=== PATIENT | male | born 2000 | race Two or more races ===

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

== ENCOUNTER 2018-04-08 22:52 | Emergency (ER) | payer OTHER ==
[2018-04-08] MEDS ORDERED: SODIUM CHLORIDE 1,000 ML IV STA (23:07)
[2018-04-08] MEDS ORDERED: ONDANSETRON 4 MG/2 ML VIAL IVPUSH ONE (23:07)
[2018-04-08] MEDS ORDERED: FAMOTIDINE 20 MG/50 ML IVPB 20 MG/50 ML MG IVPB ONE ×2 (23:07→23:32)
--- NOTE | 2018-04-08 23:09 | PDOC ---
Attending Attestation - Resident Resident Name: Colton Cantrell - ED Attending Attestation I have performed the following: I have examined & evaluated the patient, The case was reviewed & discussed with the resident, I agree w/resident's findings & plan - HPI HPI: 04/08/18 23:29 The patient is a 17 year old male, with a significant past medical history of diverticulosis, who presents to the emergency department with, 1 day of nausea, epigastric pain, and subjective chills. He describes his epigastric pain as a stabbing sensation with associated dry heaves. His last bowel movement was yesterday. He denies any recent headache or dizziness. He denies any recent vomit, diarrhea or constipation. He denies any recent chest pain or shortness of breath. He denies any recent dysuria, frequency, urgency or hematuria. Allergies: NKA - Physicial Exam PE: 04/09/18 00:30 GENERAL: Awake, alert, and fully oriented, in no acute distress HEAD: No signs of trauma EYES: PERRLA, EOMI, sclera anicteric, conjunctiva clear ENT: Auricles normal inspection, hearing grossly normal, nares patent, oropharynx clear without exudates. Moist mucosa NECK: Normal ROM, supple, no lymphadenopathy, JVD, or masses LUNGS: Breath sounds equal, clear to auscultation bilaterally. No wheezes, and no crackles HEART: Regular rate and rhythm, normal S1 and S2, no murmurs, rubs or gallops +ABDOMEN: Obese. Gassy bowel sounds. Minimal periumbilical tenderness. Soft, nontender. No guarding, no rebound. No masses EXTREMITIES: Normal range of motion, no edema. No clubbing or cyanosis. No cords, erythema, or tenderness NEUROLOGICAL: Cranial nerves II through XII grossly intact. Normal speech, normal gait SKIN: Warm, Dry, normal turgor, no rashes or lesions noted. <Rei Gomes - Last Filed: 04/09/18 00:30> - Medical Decision Making 04/09/18 00:40 Labs normal; exam normal; pt will be discharged and he can follow with GI as an outpatient. UA is normal and pt received IV hydration. <Ellen Appiah - Last Filed: 04/09/18 00:41> Attestations - Attestations 04/08/18 23:30 Documentation prepared by Rei Gomes, acting as medical payment poster for Ellen Appiah MD. <Rei Gomes - Last Filed: 04/09/18 00:30>
--- NOTE | 2018-04-08 23:16 | PDOC ---
History of Present Illness - General Stated Complaint: ABDOMINAL PAIN Time Seen by Provider: 04/08/18 23:01 History Source: Patient Exam Limitations: No Limitations - History of Present Illness Initial Comments: 04/08/18 23:12 Patient is a 17M with history of diverticulosis here today complaining of one day of epigastric abdominal pain and nausea. He describes the pain as stabbing pain in his epigastrium. Patient denies prior abdominal surgery. Denies fevers, vomiting. Denies dysuria. Last bowel movement today. Past History - Past Medical History Allergies/Adverse Reactions: Allergies Allergy/AdvReac Type Severity Reaction Status Date / Time No Known Allergies Allergy Verified 04/08/18 23:39 Home Medications: Ambulatory Orders Acetaminophen [Tylenol] 650 mg PO PRN 05/21/17 Ibuprofen 800 mg PO QID PRN #60 tab MDD 3 05/21/17 Loperamide HCl [Imodium A-D] 2 mg PO ASDIR #20 capsule MDD 4 10/22/17 Ondansetron [Zofran Odt -] 4 mg SL TID #8 od.tablet 10/22/17 Asthma: Yes COPD: No DVT: No Dementia: No - Immunization History Immunization Up to Date: Yes - Suicide/Smoking/Psychosocial Hx Smoking History: Never smoked Have you smoked in the past 12 months: No Hx Alcohol Use: No Drug/Substance Use Hx: No Substance Use Type: None Review of Systems - Review of Systems Comments:: 04/08/18 23:13 GENERAL/CONSTITUTIONAL: No fever or chills. No weakness. HEAD, EYES, EARS, NOSE AND THROAT: No change in vision. No sore throat. CARDIOVASCULAR: No chest pain or shortness of breath RESPIRATORY: No cough, wheezing, or hemoptysis. GASTROINTESTINAL: +nausea. No vomiting, diarrhea or constipation. GENITOURINARY: No dysuria, frequency, or change in urination. MUSCULOSKELETAL: No joint or muscle swelling or pain. No neck or back pain. SKIN: No rash NEUROLOGIC: No headache, vertigo, loss of consciousness, or change in strength/ sensation. ENDOCRINE: No increased thirst. No abnormal weight change HEMATOLOGIC/LYMPHATIC: No anemia, easy bleeding, or history of blood clots. ALLERGIC/IMMUNOLOGIC: No hives or skin allergy. *Physical Exam - Physical Exam Comments: 04/08/18 23:14 GENERAL: Awake, alert, and fully oriented, in no acute distress, sitting up without pain, moving without pain HEAD: No signs of trauma, normocephalic, atraumatic EYES: PERRLA, EOMI, sclera anicteric, conjunctiva clear ENT: Auricles normal inspection, hearing grossly normal, nares patent, oropharynx clear without exudates. Moist mucosa NECK: Normal ROM, supple, no lymphadenopathy, JVD, or masses LUNGS: No distress, speaks full sentences, clear to auscultation bilaterally HEART: Regular rate and rhythm, normal S1 and S2, no murmurs, rubs or gallops, peripheral pulses normal and equal bilaterally. ABDOMEN: Soft, +epigastric tenderness, normoactive bowel sounds. No guarding, no rebound. No masses EXTREMITIES: Normal inspection, Normal range of motion, no edema. No clubbing or cyanosis. NEUROLOGICAL: Cranial nerves II through XII grossly intact. Normal speech, normal gait, no focal sensorimotor deficits SKIN: Warm, Dry, normal turgor, no rashes or lesions noted. ED Treatment Course - LABORATORY CBC & Chemistry Diagram: 04/08/18 23:30 04/08/18 23:30 Medical Decision Making - Medical Decision Making 04/08/18 23:14 Patient is 17M with history of diverticulosis here today complaining of epigastric abdominal pain and nausea. Vital signs normal and stable. Believe patient most likely has gastritis, but will do basic labs to evaluate for pancreatitis and liver inflammation. Do not believe that patient has cholecystitis given patient's no RUQ pain. Do not believe that patient has diverticulitis or appendicitis due to lack of lower abdominal pain. Will treat with fluids, pepcid, zofran. 04/09/18 00:32 CBC CMP reassuring. 04/09/18 00:33 Patient reassessed, feeling better. Nontender abdomen on exam. Will discharge home. *DC/Admit/Observation/Transfer Diagnosis at time of Disposition: Gastritis - Discharge Dispostion Disposition: HOME Condition at time of disposition: Good Decision to Admit order: No - Referrals Referrals: Andrae Hawthorne MD [Staff Physician] - - Patient Instructions Printed Discharge Instructions: DI for Gastritis Additional Instructions: Please return if you have any new, worsening or concerning symptoms. Please follow up with your primary care doctor and GI specialist on Wednesday. - Post Discharge Activity Forms/Work/School Notes: Back to Work
[2018-04-08] MEDS ORDERED: ONDANSETRON 4 MG/2 ML VIAL ONE (23:31)
[2018-04-08 23:39] VITALS: BP 128/85; PULSE 60; TEMP 98.7; BMI 38.6
[2018-04-08 23:40] LABS: BASO % 0.7 % (0-2.0); EOS % 2.8 % (0-4.5); HEMATOCRIT 42.1 % (35.4-49); HEMOGLOBIN 14.5 GM/dL (11.7-16.9); LYMPH % 26.3 % (8-40); MCHC 34.4 g/dl (32.0-35.9); MEAN CELL VOLUME 90.3 fl (80-96); MONO % 11.6 % (3.8-10.2); NEUT % 58.6 % (42.8-82.8); PLATELET COUNT 232 K/MM3 (134-434); RBC 4.67 M/mm3 (4.00-5.60); RDW 13.4 % (11.9-15.9); WHITE BLOOD COUNT 10.6 K/mm3 (4.0-10.0)
[2018-04-09 00:05] LABS: ALBUMIN 3.7 g/dl (3.4-5.0); ALK PHOS 98 U/L (45-117); ANION GAP 6 MMOL/L (8-16); BILIRUBIN,TOTAL 0.2 mg/dL (0.2-1.0); BLOOD UREA NITROGEN 12 mg/dL (7-18); CALCIUM 8.8 mg/dL (8.5-10.1); CHLORIDE 105 mmol/L (98-107); CO2 29 mmol/L (21-32); GLUCOSE,RANDOM 99 mg/dL (74-106); LIPASE 102 U/L (73-393); SGPT/ALT 41 U/L (12-78); SODIUM 140 mmol/L (136-145); TOT PROT 7.8 g/dl (6.4-8.2)
[2018-04-09 00:08] LABS: POTASSIUM 4.4 mmol/L (3.5-5.1); SGOT/AST 27 U/L (15-37)
[2018-04-09 00:30] LABS: URINE APPEARANCE CLEAR; URINE BILIRUBIN NEGATIVE (<2.0 mg/dL); URINE COLOR LTYELLOW; URINE GLUCOSE (UA) NEGATIVE (NEGATIVE); URINE KETONE NEGATIVE (NEGATIVE); URINE LEUK ESTERASE NEGATIVE (NEGATIVE); URINE NITRITE NEGATIVE (NEGATIVE); URINE PROTEIN NEGATIVE (NEGATIVE); URINE UROBILINOGEN NEGATIVE mg/dL (0.2-1.0)
== END 2018-04-09 00:54 | disposition home or self-care (01) ==
LOC: JER 22:52
PROC: 3E033GC Introduction of Other Therapeutic Substance into Peripheral Vein, Percutaneous Approach (ICD-10-PCS; principal; 2018-04-08)
PROC: 3E033GC Introduction of Other Therapeutic Substance into Peripheral Vein, Percutaneous Approach (ICD-10-PCS; 2018-04-08)
DX: K29.00 Acute gastritis without bleeding (principal); Z87.19 Personal history of other diseases of the digestive system
CPT/HCPCS: 36415; 80053; 81003; 83690; 85025; 96365; 96375; 99281-25; J7030

== ENCOUNTER 2018-05-30 17:17 | Emergency (ER) | payer OTHER ==
[2018-05-30 17:29] VITALS: BP 152/88; PULSE 84; TEMP 98.8; BMI 38.6
--- NOTE | 2018-05-30 17:29 | PDOC ---
Rapid Medical Evaluation Time Seen by Provider: 05/30/18 17:23 Medical Evaluation: Allergies Allergy/AdvReac Type Severity Reaction Status Date / Time No Known Allergies Allergy Verified 04/08/18 23:39 05/30/18 17:26 I have performed a brief in person evaluation of this patient. The patient presents with a chief complaint of: "muscle vibrations" Pt states that he feels like my "spine is vibrating." I also had random UE and LE movements x 1 day. Pertinent PE: Skin: Clear Lungs: Clear Heart: RRR MS: Moves all extremities without difficulty. Neuro: Alert and oriented. 5/5 strength in UE and LE groups. No protonator drift. Psych: Appropriate affect The patient will proceed to: pt will go to [facility] for further evaluation. Discharge Disposition - Diagnosis Muscle spasm - Referrals - Patient Instructions - Post Discharge Activity
--- NOTE | 2018-05-30 18:17 | PDOC ---
History of Present Illness - General Chief Complaint: Injury Stated Complaint: FALL Time Seen by Provider: 05/30/18 17:23 History Source: Patient Exam Limitations: No Limitations Past History - Past Medical History Allergies/Adverse Reactions: Allergies Allergy/AdvReac Type Severity Reaction Status Date / Time No Known Allergies Allergy Verified 05/30/18 17:25 Home Medications: Ambulatory Orders NK [No Known Home Medication] 05/30/18 Asthma: Yes COPD: No DVT: No Dementia: No - Immunization History Immunization Up to Date: Yes - Suicide/Smoking/Psychosocial Hx Smoking History: Never smoked Have you smoked in the past 12 months: No Information on smoking cessation initiated: No Hx Alcohol Use: No Drug/Substance Use Hx: No Substance Use Type: None Trauma Specific PMHX - Complaint Specific PMHX Back Injury: Yes Neck Injury: No *Physical Exam - Vital Signs Last Vital Signs Temp Pulse Resp BP Pulse Ox 98.8 F 84 18 152/88 100 05/30/18 17:26 05/30/18 17:26 05/30/18 17:26 05/30/18 17:26 05/30/18 17:26 *DC/Admit/Observation/Transfer Diagnosis at time of Disposition: Muscle spasm - Discharge Dispostion Disposition: HOME Condition at time of disposition: Stable - Referrals Referrals: Juvenal Alonso MD [Staff Physician] - - Patient Instructions Additional Instructions: Your CAT scan as well as her examination today was normal. Given the history of symptoms please follow up with neurology in 1-2 days for further evaluation and treatment options. Return to the emergency room should symptoms worsen. - Post Discharge Activity
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
== END 2018-05-30 19:33 | disposition home or self-care (01) ==
LOC: JERFT 17:17
DX: M62.838 Other muscle spasm (principal); R25.8 Other abnormal involuntary movements; Z91.81 History of falling; Z87.09 Personal history of other diseases of the respiratory system
CPT/HCPCS: 70450-TC; 99281-25

== ENCOUNTER 2018-06-22 23:45 | Emergency (ER) | payer OTHER ==
[2018-06-23 01:08] VITALS: BP 139/74; PULSE 78; TEMP 98.6; BMI 36.9
--- NOTE | 2018-06-23 01:55 | PDOC ---
History of Present Illness - General Chief Complaint: Pain Stated Complaint: LT FOOT PAIN Time Seen by Provider: 06/23/18 01:55 History Source: Patient - History of Present Illness Initial Comments: 06/23/18 02:10 The patient is a 18 year old male with a PMH of Asthma (multiple childhood hospitalizations, no intubations) presents to our ED c/o acute onset of L foot pain. States he noticed the pain when he woke up this morning and it is "aching " localized to right his R metatarsal, 5/10 and worse with ambulation. No h/o trauma. Motrin @ home has provided little to no relief. The patient denies chest pain, abdominal pain, shortness of breath, nausea/ vomiting, diarrhea/constipation. NKDA Surgical: L hip replacement Social: denies toxic habits PMD: None - will refer to IM resident clinic Past History - Past Medical History Allergies/Adverse Reactions: Allergies Allergy/AdvReac Type Severity Reaction Status Date / Time pepper (genus Capsicum) Allergy Rash Verified 06/23/18 02:22 Home Medications: Ambulatory Orders Ibuprofen 800 mg PO PRN PRN 06/23/18 Asthma: Yes COPD: No DVT: No Dementia: No - Immunization History Immunization Up to Date: Yes - Suicide/Smoking/Psychosocial Hx Smoking History: Never smoked Have you smoked in the past 12 months: No Hx Alcohol Use: No Drug/Substance Use Hx: No Substance Use Type: None Review of Systems - Review of Systems Constitutional: No: Chills, Fever HEENTM: No: Blurred Vision, Double Vision Respiratory: No: Cough, Shortness of Breath Cardiac (ROS): No: Chest Pain, Lightheadedness, Palpitations, Syncope ABD/GI: No: Constipated, Diarrhea, Nausea, Vomiting *Physical Exam - Vital Signs Last Vital Signs Temp Pulse Resp BP Pulse Ox 98.6 F 78 19 139/74 100 06/23/18 00:04 06/23/18 00:04 06/23/18 00:04 06/23/18 00:04 06/23/18 00:04 - Physical Exam General Appearance: Yes: Nourished, Appropriately Dressed, Obese HEENT: positive: Normal Voice, Hearing Grossly Normal Neck: positive: Trachea midline, Supple Respiratory/Chest: positive: Lungs Clear, Normal Breath Sounds Cardiovascular: positive: S1, S2. negative: JVD Gastrointestinal/Abdominal: positive: Normal Bowel Sounds, Soft Extremity: positive: Other (TTP @ L 1st metarsal/phlange joint, 2+ DP pulse, weight bearing with pain) Integumentary: positive: Normal Color, Dry, Warm Neurologic: positive: Fully Oriented, Alert Medical Decision Making - Medical Decision Making 06/23/18 02:11 18 year old male with foot pain. TTP @ base of 1st phalange/metatarsal Will obtain XR. Tylenol for pain. Reassess. 06/23/18 04:46 XR shows no acute fracture. Patient symptomatically improved. Ambulatory. Will discharge patient home with supportive care. I discussed the physical exam findings, ancillary test results and final diagnoses with the patient. I answered all of the patient's questions. The patient was satisfied with the care received and felt comfortable with the discharge plan and treatment plan. The patient will return to the Emergency Department with any new, persistent or worsening symptoms. *DC/Admit/Observation/Transfer Diagnosis at time of Disposition: Foot sprain - Discharge Dispostion Disposition: HOME Condition at time of disposition: Stable Decision to Admit order: No - Referrals Referrals: Darrell Groves MD [Staff Physician] - - Patient Instructions Additional Instructions: You were evaluated today for your Left foot pain. An xray of your foot showed no acute fracture. You can use Tylenol (up to 4000 mg daily) alternating with Motrin (up to 3200 mg daily) for your pain. We have provided a referral to an subway train driver, please make an appointment to establish primary care. Return to the Emergency Department for any new/worsening/concerning symptoms. - Post Discharge Activity Forms/Work/School Notes: Back to Work
[2018-06-23] MEDS ORDERED: ACETAMINOPHEN 500 MG TABLET (FP) PO ONE (02:08)
[2018-06-23] MEDS ORDERED: ACETAMINOPHEN 325 MG TABLET (FP) ONE (02:15)
--- NOTE | 2018-06-23 05:20 | PDOC ---
Attending Attestation - Resident Resident Name: Andreea Beck - ED Attending Attestation I have performed the following: I have examined & evaluated the patient, The case was reviewed & discussed with the resident, I agree w/resident's findings & plan, Exceptions are as noted - HPI HPI: 06/23/18 05:17 see mdm - Physicial Exam PE: 06/23/18 05:17 see mdm - Medical Decision Making 06/23/18 05:18 18M no pmh with atraumatic foot px, no swelling, minimal ttp over base of L great toe pe as documented in associated resident note analgesia f/u xr of foot likely dc with out patient follow up
== END 2018-06-23 04:24 | disposition home or self-care (01) ==
LOC: JER 23:45
DX: S93.622A Sprain of tarsometatarsal ligament of left foot, initial encounter (principal); X58.XXXA Exposure to other specified factors, initial encounter; Y93.89 Activity, other specified; Y92.032 Bedroom in apartment as the place of occurrence of the external cause; Y99.8 Other external cause status; Z87.09 Personal history of other diseases of the respiratory system
CPT/HCPCS: 73630-TC-LT; 99283-25

== ENCOUNTER 2018-06-24 08:46 | Emergency (ER) | payer OTHER ==
[2018-06-24 08:59] VITALS: BP 132/83; PULSE 69; TEMP 98.8; BMI 36.9
--- NOTE | 2018-06-24 09:27 | PDOC ---
History of Present Illness - General Chief Complaint: Pain, Acute Stated Complaint: REVISIT, LT FOOT PAIN Time Seen by Provider: 06/24/18 09:00 History Source: Patient Exam Limitations: No Limitations - History of Present Illness Initial Comments: CHIEF COMPLAINT: 18 y/o afebrile male with PMH asthma, seen here yesterday, c/ o left big toe pain. HISTORY OF PRESENT ILLNESS: Patient states he woke up with the pain and denies trauma. He was seen here yesterday for same issue with negative xray. Patient denies fever, streaking, trauma to foot, fall. He has been taking motrin for his pain. Vital signs on arrival are within normal limits. REVIEW OF SYSTEMS: GENERAL/CONSTITUTIONAL: No fever/chills. No weakness. No weight change. MUSCULOSKELETAL: +left big toe pain. No neck or back pain. SKIN: No rash or easy bruising. NEUROLOGIC: No headache, vertigo, loss of consciousness, or loss of sensation. PHYSICAL EXAM: VITAL_SIGNS: within normal limits GENERAL_APPEARANCE: alert, cooperative, no obvious discomfort. MENTAL_STATUS: speech clear, oriented X 3, responds appropriately to questions. NEURO: motor intact and sensory intact in injured extremity. EXTREMITIES: Swelling, erythema and mild warmth to left MTP joint of left big toe. No streaking. Pain with the slightest touch, consistent with gout. No erythema or swelling to left 1st toe cuticle area. Patient denies he cut his toenails recently SKIN: warm, dry, good color. Past History - Past Medical History Allergies/Adverse Reactions: Allergies Allergy/AdvReac Type Severity Reaction Status Date / Time pepper (genus Capsicum) Allergy Rash Verified 06/24/18 08:55 Home Medications: Ambulatory Orders Ibuprofen 800 mg PO PRN PRN 06/23/18 Prednisone [Deltasone] 40 mg PO DAILY #8 tablet 06/24/18 Asthma: Yes COPD: No DVT: No Dementia: No - Immunization History Immunization Up to Date: Yes - Suicide/Smoking/Psychosocial Hx Smoking History: Never smoked Have you smoked in the past 12 months: No Hx Alcohol Use: No Drug/Substance Use Hx: No Substance Use Type: None *Physical Exam - Vital Signs Last Vital Signs Temp Pulse Resp BP Pulse Ox 98.8 F 69 16 132/83 95 06/24/18 08:55 06/24/18 08:55 06/24/18 08:55 06/24/18 08:55 06/24/18 08:55 Medical Decision Making - Medical Decision Making A/P: Patient with left big toe pain. Had negative xray yesterday and patient denies trauma and fever. Most likely gout flare. Will instruct patient to continue taking Ibuprofen and will send rx for prednisone to his pharmacy. Patient instructed to f/u with his doctor and return to the ER with any worsening or concerning symptoms, such as fever. The patient verbalizes understanding of all instructions, has no further questions and is awaiting discharge. *DC/Admit/Observation/Transfer Diagnosis at time of Disposition: Gout attack - Discharge Dispostion Disposition: HOME Condition at time of disposition: Good - Prescriptions Prescriptions: Prednisone [Deltasone] 40 mg PO DAILY #8 tablet - Referrals Referrals: Darrell Groves MD [Staff Physician] - (Call Wednesday) - Patient Instructions Printed Discharge Instructions: DI for Gout Additional Instructions: Discharge Instructions: -You have gout -A prescription for 4 days of steroids has been sent to your pharmacy; please start tomorrow -Continue taking Ibuprofen as prescribed -Ice your toe -Call Dr. Groves on Wednesday to schedule follow up appointment - Post Discharge Activity Forms/Work/School Notes: Back to School
[2018-06-24] MEDS ORDERED: predniSONE 20 MG TABLET (UD) PO ONE (09:45)
[2018-06-24] MEDS ORDERED: predniSONE 20 MG TABLET (UD) ONE (09:49)
== END 2018-06-24 10:11 | disposition home or self-care (01) ==
LOC: JERFT 08:46
DX: M10.9 Gout, unspecified (principal)
CPT/HCPCS: 99281-25

== ENCOUNTER 2018-06-28 00:47 | Observation (INO) | payer OTHER ==
--- NOTE | 2018-06-28 03:19 | PDOC ---
History of Present Illness - General Chief Complaint: Pain, Acute Stated Complaint: L LEG PAIN Time Seen by Provider: 06/28/18 03:18 History Source: Patient Exam Limitations: No Limitations - History of Present Illness Initial Comments: 06/28/18 03:40 Sammy is a 18 yo M h/o asthma who presents to the ER with a complaint of left foot pain Pt states that his symptoms began almost 1 week ago He was in his usual state of health and awoke almost 1 week ago with foot pain Pt was seen in the ER the day after his symptoms began Xray performed and was negative Pt discharged with dx of musculoskeletal pain. Discharged on Motrin 800 mg. Pt returned to the ER the following day where he was ultimately diagnosed with Gout Pt was discharged on Prednisone which he has taken He has noted worsening of his foot pain and swelling No fevers or chills No arthropod bites No trauma No inversion injury NO prior episodes of gout 06/28/18 03:45 PMH: Asthma PSH: Left hip repair (SCFE) Meds: no chronic medications ALL: NKDA Social: Denies alcohol, drug, cigarette use ROS: GENERAL/CONSTITUTIONAL: No: fever, chills HEAD, EYES, EARS, NOSE AND THROAT: No: change in vision, ear pain CARDIOVASCULAR: No: chest pain, lightheadedness, palpitations RESPIRATORY: No: cough, shortness of breath, GASTROINTESTINAL: No: nausea, vomiting, diarrhea, abdominal pain MUSCULOSKELETAL: Yes: left foot pain and swelling No: back pain SKIN: Yes: left foot swollen, erythematous, No: lesions, pallor, rash or easy bruising. NEUROLOGIC: No: headache, vertigo, paresthesias, weakness ENDOCRINE: No: unexplained weight gain or loss HEMATOLOGIC/LYMPHATIC: No: anemia, easy bleeding, swelling nodes. PE: GENERAL: The patient is in no acute distress. HEAD: Normal with no signs of trauma. EYES: PERRLA, EOMI, sclera anicteric, conjunctiva clear. ENT: Ears normal, nares patent, oropharynx clear without exudates. Moist mucous membranes. NECK: Normal range of motion, supple without lymphadenopathy, JVD, or masses. LUNGS: Breath sounds equal, clear to auscultation bilaterally. No wheezes, and no crackles. HEART:Regular rate and rhythm, normal S1 and S2 without murmur, rub or gallop. ABDOMEN: Soft, nontender, normoactive bowel sounds. EXTREMITIES: Normal range of motion NEUROLOGICAL: Cranial nerves II through XII grossly intact. Normal speech. No focal neurological deficits. MUSCULOSKELETAL: left foot swollen, limited range of motion at ankle SKIN: Erythema ankle and great toe Past History - Past Medical History Allergies/Adverse Reactions: Allergies Allergy/AdvReac Type Severity Reaction Status Date / Time pepper (genus Capsicum) Allergy Rash Verified 06/28/18 02:41 Home Medications: Ambulatory Orders Ibuprofen 800 mg PO DAILY 06/28/18 predniSONE [Deltasone -] 40 mg PO DAILY 06/28/18 Asthma: Yes COPD: No DVT: No Dementia: No - Immunization History Immunization Up to Date: Yes - Suicide/Smoking/Psychosocial Hx Smoking History: Never smoked Have you smoked in the past 12 months: No Information on smoking cessation initiated: No Hx Alcohol Use: No Drug/Substance Use Hx: No Substance Use Type: None *Physical Exam - Vital Signs Last Vital Signs Temp Pulse Resp BP Pulse Ox 99 F 83 18 135/90 99 06/28/18 00:50 06/28/18 00:50 06/28/18 00:50 06/28/18 00:50 06/28/18 00:50 ED Treatment Course - LABORATORY CBC & Chemistry Diagram: 06/28/18 07:40 06/28/18 07:40 Medical Decision Making - Medical Decision Making 06/28/18 03:51 Left foot pain and swelling DD: Gout vs. cellulitis vs ? occult fracture Pt has not improved with outpatient treatment Will do: Labs including uric acid Repeat x ray IV pain medications ReAssess 06/28/18 05:41 06/28/18 05:41 Laboratory Tests 06/28/18 06/28/18 03:50 03:50 WBC 10.6 H Hgb 14.9 Hct 43.7 Plt Count 268 BUN 19 H Creatinine 1.2 Call placed to hospitalist They would like to hold on observation for now Recommend giving - Tylenol IV Recommend doing Duplex Both ordered Placed on obs given intractable pain Toradol has improved pain but it is still present Clinical Impression: likely gout, initial pressions *DC/Admit/Observation/Transfer Diagnosis at time of Disposition: Intractable pain Gout attack Qualifiers: Gout site: ankle Gout etiology: unspecified cause Laterality: left Qualified Code(s): M10.9 - Gout, unspecified - Discharge Dispostion Condition at time of disposition: Stable Decision to Admit order: Yes - Referrals - Patient Instructions - Post Discharge Activity
[2018-06-28] MEDS ORDERED: KETOROLAC TROMETHAMINE 30 MG/1 ML VIAL IVPUSH ONE (03:22)
[2018-06-28] MEDS ORDERED: KETOROLAC TROMETHAMINE 30 MG/1 ML VIAL ONE (03:30)
[2018-06-28 03:57] LABS: BASO % 1.1 % (0-2.0); EOS % 3.1 % (0-4.5); HEMATOCRIT 43.7 % (35.4-49); HEMOGLOBIN 14.9 GM/dL (11.7-16.9); LYMPH % 23.8 % (8-40); MCH 30.8 pg (25.7-33.7); MCHC 34.1 g/dl (32.0-35.9); MEAN CELL VOLUME 90.4 fl (80-96); MEAN PLT VOLUME 8.2 fl (7.5-11.1); MONO % 10.9 % (3.8-10.2); NEUT % 61.1 % (42.8-82.8); PLATELET COUNT 268 K/MM3 (134-434); RBC 4.83 M/mm3 (4.00-5.60); RDW 13.5 % (11.9-15.9); WHITE BLOOD COUNT 10.6 K/mm3 (4.0-10.0)
[2018-06-28 04:40] LABS: ALBUMIN 3.9 g/dl (3.4-5.0); ALK PHOS 95 U/L (45-117); ANION GAP 7 MMOL/L (8-16); BILIRUBIN,TOTAL 0.2 mg/dL (0.2-1); BLOOD UREA NITROGEN 19 mg/dL (7-18); CALCIUM 8.8 mg/dL (8.5-10.1); CHLORIDE 103 mmol/L (98-107); CO2 29 mmol/L (21-32); CREATININE 1.2 mg/dL (0.55-1.3); GLUCOSE,RANDOM 96 mg/dL (74-106); POTASSIUM 4.4 mmol/L (3.5-5.1); SGOT/AST 24 U/L (15-37); SGPT/ALT 37 U/L (13-61); SODIUM 139 mmol/L (136-145); TOT PROT 8.3 g/dl (6.4-8.2); URIC ACID 8.7 mg/dL (2.6-7.2)
[2018-06-28] MEDS ORDERED: CEFAZOLIN 1 GM/D5W 1 GM/50 ML BAG IVPB ONE (05:05)
[2018-06-28] MEDS ORDERED: CEFAZOLIN 1 GM/D5W 1 GM/50 ML BAG ONE (05:19)
[2018-06-28] MEDS ORDERED: ACETAMINOPHEN 1000 MG/100 ML VIAL (NON FORMULARY) IVPB ONE (05:40)
[2018-06-28] MEDS ORDERED: ACETAMINOPHEN INJECTION 100 ML IVPB ONE (05:44)
[2018-06-28] MEDS ORDERED: ALBUTEROL SO4 0.083% IH SOL 2.5 MG/3 ML VIAL.NEB. NEB PRN (06:47)
[2018-06-28] MEDS ORDERED: predniSONE 20 MG TABLET (UD) PO ONE (06:47)
[2018-06-28] MEDS ORDERED: IBUPROFEN 400 MG TABLET (FP) PO PRN ×2 (06:49→07:10)
[2018-06-28] MEDS ORDERED: predniSONE 20 MG TABLET (UD) ONE (06:57)
--- NOTE | 2018-06-28 07:05 | HP ---
CHIEF COMPLAINT: L foot pain PCP: none HISTORY OF PRESENT ILLNESS: Patient is a 18 y/o male with asthma who presents for left lower foot pain. This pain began on Wednesday. He presented to the ED and was told he does not have a fracture and that he has gout. He was d/c from the ED with motrin and prednisone but stated the pain did not get better. The pain is at the base of his big toe. He describes it as throbbing and the pain radiates up his calf. He reports the pain is worse with walking and when he is laying down. He states the ibuprofen is not helping. Patient reports his father and uncles have a history of gout and lupus. Patient reports he does not drink alcohol and he does eat red meat. Patient moved from the [place] ago and has no other recent history of travel. Patient denies fever, chills, nausea, vomiting, chest pain, or shortness of breath. ER course was notable for: (1) Toradol (2) (3) Recent Travel: denies PAST MEDICAL HISTORY: asthma PAST SURGICAL HISTORY: Left hip surgery Social History: Smoking: denies Alcohol: denies Drugs: denies Family History: Allergies pepper (genus Capsicum) Allergy (Verified 06/28/18 02:41) Rash HOME MEDICATIONS: Home Medications Medication Instructions Recorded Ibuprofen 800 mg PO DAILY 06/28/18 predniSONE [Deltasone -] 40 mg PO DAILY 06/28/18 REVIEW OF SYSTEMS CONSTITUTIONAL: Absent: fever, chills, diaphoresis, generalized weakness, malaise, loss of appetite, weight change HEENT: Absent: rhinorrhea, nasal congestion, throat pain, throat swelling, difficulty swallowing, mouth swelling, ear pain, eye pain, visual changes CARDIOVASCULAR: Absent: chest pain, syncope, palpitations, irregular heart rate, lightheadedness , peripheral edema RESPIRATORY: Absent: cough, shortness of breath, dyspnea with exertion, orthopnea, wheezing, stridor, hemoptysis GASTROINTESTINAL: Absent: abdominal pain, abdominal distension, nausea, vomiting, diarrhea, constipation, melena, hematochezia GENITOURINARY: Absent: dysuria, frequency, urgency, hesitancy, hematuria, flank pain, genital pain MUSCULOSKELETAL: myalgia, arthralgia, joint swelling, Left foot Absent: back pain, neck pain SKIN: Absent: rash, itching, pallor HEMATOLOGIC/IMMUNOLOGIC: Absent: easy bleeding, easy bruising, lymphadenopathy, frequent infections ENDOCRINE: Absent: unexplained weight gain, unexplained weight loss, heat intolerance, cold intolerance NEUROLOGIC: Absent: headache, focal weakness or paresthesias, dizziness, unsteady gait, seizure, mental status changes, bladder or bowel incontinence PSYCHIATRIC: Absent: anxiety, depression, suicidal or homicidal ideation, hallucinations. PHYSICAL EXAMINATION Vital Signs - 24 hr 06/28/18 06/28/18 00:50 04:50 Temperature 99 F Pulse Rate 83 Pulse Rate [ 86 Apical] Respiratory 18 18 Rate Blood Pressure 135/90 Blood Pressure 132/76 [Left Arm] O2 Sat by Pulse 99 98 Oximetry (%) GENERAL: Awake, alert, and fully oriented, in no acute distress. HEAD: Normal with no signs of trauma. EYES: Pupils equal, round and reactive to light, extraocular movements intact EARS, NOSE, THROAT: Moist mucous membranes. NECK: Normal range of motion LUNGS: Breath sounds equal, clear to auscultation bilaterally. No wheezes, and no crackles. No accessory muscle use. HEART: Regular rate and rhythm, normal S1 and S2 without murmur, rub or gallop. ABDOMEN: Soft, nontender, not distended, normoactive bowel sounds, no guarding, no rebound, no masses. MUSCULOSKELETAL: Normal range of motion at all joints. No bony deformities or tenderness. No CVA tenderness. LOWER EXTREMITIES: swelling at base of left toe, warm compared to right foot, tender to palpation NEUROLOGICAL: Cranial nerves II-XII intact. Normal speech. PSYCHIATRIC: Cooperative. Good eye contact. Appropriate mood and affect. SKIN: Warm, dry, normal turgor, no rashes or lesions noted, normal capillary refill. Laboratory Results - last 24 hr CBC, BMP 06/28/18 03:50 06/28/18 03:50 ASSESSMENT/PLAN: Patient is a 18 y/o male with asthma who presents for left lower foot pain. #Left foot pain - r/o gout vs pseudogout vs infection vs clot - XRay on 06/23: negative for fracture, xray pending - patient afebrile, with no sick contacts less likely infection - f/u duplex r/o DVT, unlikely clot - Uric acid elevated 8.7 - f/u Dr. Sanz - f/u RF, AGNIESZKA, ESR, CRP, GC - continue ibuprohen 800 mg q6h - continue prednisone 40 mg daily - colchicine .3 mg daily #hx of asthma : stable - nebs prn as needed #obesity - recommend weight loss, can consult photo graphics librarian Dispo: can likely dispo today, patient needs a PCP for follow up Visit type - Emergency Visit Emergency Visit: Yes Care time: The patient presented to the Emergency Department on the above date and was hospitalized for further evaluation of their emergent condition. - New Patient This patient is new to me today: Yes Date on this admission: 06/28/18 - Critical Care Critical Care patient: No
--- NOTE | 2018-06-28 07:33 | PN ---
Teaching Attending Note Name of Resident: Cady Diaz ATTENDING PHYSICIAN STATEMENT I saw and evaluated the patient. I reviewed the resident's note and discussed the case with the resident. I agree with the resident's findings and plan as documented. SUBJECTIVE: Seen and examined; please see resident note for more history. In essence this is a patient with a PMH of Asthma presenting with a CC of foot pain and swelling that has been progressive the last few days. He was not having pain relieved by conservative meds at home and having a hard time walking up the stairs. He has been seen several times here for this issue as documented in prior notes. He was being treated for gout as an outpatient on NSAIDs and prednisone. 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 Hemodynamically stable and afebrile. Mother is also a patient being treated next to him; she is anxious about his illness. Will place on obs and consult rheum 10 sys ROS done and negative aside from HPI PMH positive for asthma, PSH negative for ortho procedures FH positive for RA, fibromyalgia in mother. His mother also tells me that there are other family members with lupus. Social hx denies tobacco, alcohol, or drug abuse OBJECTIVE: VS, labs, imaging reviewed NAD, resting comfortably in chair, AAO some redness and swelling with warmth of the MT to ankle region of the first left digit No tender points, normal muscle tone, +pulses RRR s1/2 no mgr NT ND +BS NC AT EOMI PERRLA CN2-12 grossly intact, no FND Further rheum workup labs pending Plain film reviewed Prior visits reviewed ASSESSMENT AND PLAN: Mr. Baker is a 18 y/o with multiple visits for foot pain presenting again with this complaint; will workup for rheum issue and ensure no infective process is underway at this juncture. 1) Foot Pain -Presumptively was treated for gout which is of course on the ddx. Continue ATC ibuprofen, QD prednisone burst. Adding Colchicine. -With FH of rheum issues will screen with ESR/CRP, RF, AGNIESZKA. Consulting rheumatology as well -Would avoid narcotics if possible; hopeful DC soon -Low suspicion for septic arthritis but will check blood cx and GC probe. Avoiding abx but if clinically worsens we will cover 2) Asthma -No acute exacerbation; monitor and PRN nebs if needed -Followup with PCP Full Code
[2018-06-28 08:14] LABS: BASO % 0.3 % (0-2.0); EOS % 2.6 % (0-4.5); HEMATOCRIT 42.5 % (35.4-49); HEMOGLOBIN 14.1 GM/dL (11.7-16.9); LYMPH % 25.9 % (8-40); MCH 29.8 pg (25.7-33.7); MCHC 33.2 g/dl (32.0-35.9); MEAN CELL VOLUME 89.8 fl (80-96); MEAN PLT VOLUME 8.2 fl (7.5-11.1); MONO % 11.9 % (3.8-10.2); NEUT % 59.3 % (42.8-82.8); PLATELET COUNT 249 K/MM3 (134-434); RBC 4.73 M/mm3 (4.00-5.60); RDW 13.7 % (11.9-15.9); WHITE BLOOD COUNT 11.1 K/mm3 (4.0-10.0)
[2018-06-28 08:24] LABS: INR 1.02 (0.83-1.09)
[2018-06-28 08:27] LABS: ACTIVATED PTT 30.4 SECONDS (25.2-36.5)
[2018-06-28 08:44] LABS: ALBUMIN 3.9 g/dl (3.4-5.0); ALK PHOS 97 U/L (45-117); ANION GAP 8 MMOL/L (8-16); BILIRUBIN,TOTAL 0.2 mg/dL (0.2-1); BLOOD UREA NITROGEN 20 mg/dL (7-18); CALCIUM 8.8 mg/dL (8.5-10.1); CHLORIDE 102 mmol/L (98-107); CO2 27 mmol/L (21-32); CREATININE 1.1 mg/dL (0.55-1.3); GLUCOSE,RANDOM 80 mg/dL (74-106); MAGNESIUM 2.2 mg/dL (1.8-2.4); PHOSPHOROUS 4.5 mg/dL (2.5-4.9); POTASSIUM 4.3 mmol/L (3.5-5.1); SGOT/AST 24 U/L (15-37); SGPT/ALT 37 U/L (13-61); SODIUM 137 mmol/L (136-145); TOT PROT 8.2 g/dl (6.4-8.2)
[2018-06-28] MEDS ORDERED: COLCHICINE 0.6 MG TABLET (FP) PO STA (09:25)
[2018-06-28] MEDS ORDERED: COLCHICINE 0.6 MG TABLET (FP) ONE (09:28)
[2018-06-28] MEDS ORDERED: COLCHICINE 0.6 MG TABLET (FP) PO SCH (10:00)
--- NOTE | 2018-06-28 10:15 | CONSULT ---
Consult Consult Specialty:: Rheumatology - History of Present Illness History of Present Illness: 18 year old male with PMH of Asthma who came wto the ER with pain in the left 1st MTP and left ankle. HPI One week ago the patient developed pain in the left 1st MTP. he was seen at the ER and prescribed Ibuprofen 800 mg TID, however he did not respond and 3 days ago he was prescribed Prednisone 40 mg/d which he took anly for 1 day with no response. Since Yesterday he also developed pain in the left ankle and denies other joint involvement. The patient denies recent trauma and he denies eating red meat or shellfish. Laboratory work-up revealed a CBC with a WBC of 11.1, Hgb 14.1, HCT 42.5 and platelets 249. Creatinine was 1.1, CRP 6.6, uric acid 8.7 and rheumatoid factor was negative. X rays of the feet were normal and Duplex US was negative for DVT. - History Source History Provided By: Patient, Significant Other, Medical Record - Past Medical History Pulmonary: Yes: Asthma - Alcohol/Substance Use Hx Alcohol Use: No - Smoking History Smoking history: Never smoked Have you smoked in the past 12 months: No Home Medications - Allergies Allergies/Adverse Reactions: Allergies Allergy/AdvReac Type Severity Reaction Status Date / Time pepper (genus Capsicum) Allergy Rash Verified 06/28/18 02:41 - Home Medications Home Medications: Ambulatory Orders Ibuprofen 800 mg PO DAILY 06/28/18 predniSONE [Deltasone -] 40 mg PO DAILY 06/28/18 Family Disease History - Family Disease History Family Disease History: Other: Mother (Psoriatic arthritis) Review of Systems - Review of Systems Constitutional: reports: No Symptoms Eyes: reports: No Symptoms HENT: reports: No Symptoms Neck: reports: No Symptoms Cardiovascular: reports: No Symptoms Respiratory: reports: No Symptoms Gastrointestinal: reports: No Symptoms Genitourinary: reports: No Symptoms Musculoskeletal: reports: Other (See HPI) Integumentary: reports: No Symptoms Neurological: reports: No Symptoms Physical Exam Vital Signs: Vital Signs Temperature 99 F 06/28/18 00:50 Pulse Rate 86 06/28/18 04:50 Respiratory Rate 18 06/28/18 04:50 Blood Pressure 132/76 06/28/18 04:50 O2 Sat by Pulse Oximetry (%) 98 06/28/18 04:50 Constitutional: Yes: Moderate Distress Eyes: Yes: WNL HENT: Yes: WNL Neck: Yes: WNL Cardiovascular: Yes: WNL Respiratory: Yes: WNL Gastrointestinal: Yes: WNL Musculoskeletal: Yes: Other (Tenderness and small effusion in the left ankle and left 1st MTP) Labs: CBC, BMP 06/28/18 07:40 06/28/18 07:40 Laboratory Tests 06/28/18 06/28/18 06/28/18 03:50 07:40 07:40 Uric Acid 8.7 H Calcium 8.8 Phosphorus 4.5 Magnesium 2.2 Total Bilirubin 0.2 AST 24 ALT 37 Alkaline Phosphatase 97 C-Reactive Protein 6.6 H Total Protein 8.2 Albumin 3.9 Rheumatoid Factor 06/28/18 07:40 Uric Acid Calcium Phosphorus Magnesium Total Bilirubin AST ALT Alkaline Phosphatase C-Reactive Protein Total Protein Albumin Rheumatoid Factor < 10.0 Problem List - Problems (1) Gout attack Assessment/Plan: Probable acute gouty arthritis involving the left ankle and left 1st MTP.. Plan: DC Ibuprofen. Prednisone 40 mg/d for 3 days, then 20 mg/d for 3 days, then 10 mg/d for 3 days, then 5 mg/d for 3 days. Indomethacin 50mg QID for 3 days. Code(s): M10.9 - GOUT, UNSPECIFIED Qualifiers: Gout site: ankle Gout etiology: unspecified cause Laterality: left Qualified Code(s): M10.9 - Gout, unspecified
--- NOTE | 2018-06-28 11:08 | PN ---
Physical Exam: SUBJECTIVE: Patient seen and examined at bedside in ED. Pt resting on stretcher comfortably. Endorses pain in his left ankle and 1st MTP. OBJECTIVE: Vital Signs Period Temp Pulse Resp BP Sys/Arauz Pulse Ox Last 24 Hr 99 F 83-86 18-18 132-135/76-90 98-99 GENERAL: AAOx3 NAD HEAD: NC/AT EYES: PERRLA EOMI ENT: MMM NECK: Trachea midline, full range of motion, supple. LUNGS: CTA B/L HEART: RRR No RG S1S2. ABDOMEN:NDNT No HSM EXTREMITIES: Swollen, erythematous left ankle and 1st MTP. Compromised ROM left ankle. NEUROLOGICAL: Cranial nerves II through XII grossly intact. Normal speech, gait not observed. PSYCH: Normal mood, normal affect. SKIN: Warm, dry, normal turgor, no rashes or lesions noted Laboratory Results - last 24 hr 06/28/18 06/28/18 06/28/18 03:50 03:50 07:40 WBC 10.6 H RBC 4.83 Hgb 14.9 Hct 43.7 MCV 90.4 MCH 30.8 MCHC 34.1 RDW 13.5 Plt Count 268 MPV 8.2 Absolute Neuts (auto) 6.5 Neutrophils % 61.1 Lymphocytes % 23.8 Monocytes % 10.9 H Eosinophils % 3.1 Basophils % 1.1 Nucleated RBC % 0 PT with INR INR PTT (Actin FS) Sodium 139 Potassium 4.4 Chloride 103 Carbon Dioxide 29 Anion Gap 7 L BUN 19 H Creatinine 1.2 Creat Clearance w eGFR > 60 Random Glucose 96 Uric Acid 8.7 H Calcium 8.8 Phosphorus Magnesium Total Bilirubin 0.2 AST 24 ALT 37 Alkaline Phosphatase 95 C-Reactive Protein 6.6 H Total Protein 8.3 H Albumin 3.9 Rheumatoid Factor 06/28/18 06/28/18 06/28/18 07:40 07:40 07:40 WBC 11.1 H RBC 4.73 Hgb 14.1 Hct 42.5 MCV 89.8 MCH 29.8 MCHC 33.2 RDW 13.7 Plt Count 249 MPV 8.2 Absolute Neuts (auto) 6.6 Neutrophils % 59.3 Lymphocytes % 25.9 Monocytes % 11.9 H Eosinophils % 2.6 Basophils % 0.3 Nucleated RBC % 0 PT with INR 12.00 INR 1.02 PTT (Actin FS) 30.4 Sodium 137 Potassium 4.3 Chloride 102 Carbon Dioxide 27 Anion Gap 8 BUN 20 H Creatinine 1.1 Creat Clearance w eGFR > 60 Random Glucose 80 Uric Acid Calcium 8.8 Phosphorus 4.5 Magnesium 2.2 Total Bilirubin 0.2 AST 24 ALT 37 Alkaline Phosphatase 97 C-Reactive Protein Total Protein 8.2 Albumin 3.9 Rheumatoid Factor 06/28/18 07:40 WBC RBC Hgb Hct MCV MCH MCHC RDW Plt Count MPV Absolute Neuts (auto) Neutrophils % Lymphocytes % Monocytes % Eosinophils % Basophils % Nucleated RBC % PT with INR INR PTT (Actin FS) Sodium Potassium Chloride Carbon Dioxide Anion Gap BUN Creatinine Creat Clearance w eGFR Random Glucose Uric Acid Calcium Phosphorus Magnesium Total Bilirubin AST ALT Alkaline Phosphatase C-Reactive Protein Total Protein Albumin Rheumatoid Factor < 10.0 Active Medications Generic Name Dose Route Start Last Admin Trade Name Freq PRN Reason Stop Dose Admin Albuterol Sulfate 1 amp 06/28/18 06:47 Ventolin 0.083% Nebulizer Soln - NEB Q8H PRN SHORT OF BREATH/WHEEZING Indomethacin 50 mg 06/28/18 14:00 Indocin - PO TID [facility] ASSESSMENT/PLAN: Patient is a 18 y/o male with asthma who presents for left lower foot pain. #Left foot pain 2/2 GOUT - Dr Sanz on board. - XRay on 06/23: negative for fracture, xray 06/28/18--> no acute foot pathology. - Duplex Negative for Deep Venous Thrombosis - Uric acid elevated 8.7 - RF Negative, CRP 6.6, AGNIESZKA pending - Ibuprofen discontinued per Rheumatology - Prednisone 40 mg/d for 3 days, then 20 mg/d for 3 days, then 10 mg/d for 3 days, then 5 mg/d for 3 days - Received Colchicine .3 mg - Indomethacin 50 mg QID for 3 days. -Establish Primary Care relationship for further counseling on diet and exercise #Asthma - 1 amp NEB Q8H PRN #FEN No Fluids Monitor Electrolytes Regular Diet DVT ppx: AEM Dispo: OBS Visit type - Emergency Visit Emergency Visit: Yes ED Registration Date: 06/28/18 Care time: The patient presented to the Emergency Department on the above date and was hospitalized for further evaluation of their emergent condition. - New Patient This patient is new to me today: Yes Date on this admission: 06/28/18 - Critical Care Critical Care patient: No - Discharge Referral Referred to [facility] No
--- NOTE | 2018-06-28 14:05 | PN ---
Teaching Attending Note Name of Resident: Paul Edwards ATTENDING PHYSICIAN STATEMENT I saw and evaluated the patient. I reviewed the resident's note and discussed the case with the resident. I agree with the resident's findings and plan as documented. SUBJECTIVE:pain has improved since arrival. states he was taking steroids earlier in the week with no relief. also no relief with motrin at home. however the "IV medication" provided significant relief. denies CP, SOB, fever, chills, N/V/C/D, no previous episodes. strong family hx of gout OBJECTIVE: Last Vital Signs Temp Pulse Resp BP Pulse Ox 98.6 F 87 20 128/88 98 06/28/18 11:29 06/28/18 11:29 06/28/18 11:29 06/28/18 11:29 06/28/18 04:50 General NAD Extremities L foot with 1st metatarsal MCP joint is erythematous, swollen and tender. limited ROM of the digits. DP 2+. ASSESSMENT AND PLAN: 18yo M with no PMH presented to the Er with pain and swelling of MCP joint of L foot 1. L 1st digit gout- elevated uric acid. given colchicine 1.2mg. will switch IBU to indomethacin 50mg Q8H, will start steroid taper per rheum recommendations. dietary changes to prevent reoccurrence 2. DVT ppx- EAM 3. likely d/c in AM.
[2018-06-28 16:30] VITALS: BMI 37.5
[2018-06-28] MEDS: INDOMETHACIN 50 MG CAPSULE PO SCH ×2 (18:12→22:25)
[2018-06-28] MEDS ORDERED: ACETAMINOPHEN 325 MG TABLET (FP) PO ONE (18:15)
[2018-06-29] MEDS: INDOMETHACIN 50 MG CAPSULE PO SCH (06:28)
[2018-06-29 06:47] LABS: HEMATOCRIT 41.8 % (35.4-49); HEMOGLOBIN 13.8 GM/dL (11.7-16.9); MCH 29.8 pg (25.7-33.7); MEAN CELL VOLUME 90.5 fl (80-96); MEAN PLT VOLUME 8.1 fl (7.5-11.1); PLATELET COUNT 236 K/MM3 (134-434); RBC 4.62 M/mm3 (4.00-5.60); RDW 13.6 % (11.9-15.9); WHITE BLOOD COUNT 10.8 K/mm3 (4.0-10.0)
[2018-06-29] MEDS ORDERED: predniSONE 20 MG TABLET (UD) PO ONE (07:00)
[2018-06-29 08:53] LABS: ANION GAP 7 MMOL/L (8-16); BLOOD UREA NITROGEN 19 mg/dL (7-18); CALCIUM 8.7 mg/dL (8.5-10.1); CHLORIDE 103 mmol/L (98-107); CO2 29 mmol/L (21-32); GLUCOSE,RANDOM 84 mg/dL (74-106); MAGNESIUM 2.3 mg/dL (1.8-2.4); PHOSPHOROUS 4.4 mg/dL (2.5-4.9); POTASSIUM 4.4 mmol/L (3.5-5.1); SODIUM 138 mmol/L (136-145)
[2018-06-29] MEDS ORDERED: predniSONE 20 MG TABLET (UD) PO SCH (10:00)
[2018-06-29 10:52] VITALS: BP 133/77; PULSE 57; TEMP 98.2
--- NOTE | 2018-06-29 10:54 | DS ---
Physical Exam: SUBJECTIVE: Patient seen and examined OBJECTIVE: Vital Signs Period Temp Pulse Resp BP Sys/Arauz Pulse Ox Last 24 Hr 97.4 F-98.6 F 54-87 18-20 112-136/62-88 99-99 PHYSICAL EXAM GENERAL: The patient is awake, alert, and fully oriented, in no acute distress. HEAD: Normal with no signs of trauma. EYES: PERRL, extraocular movements intact, sclera anicteric, conjunctiva clear. ENT: Ears normal, nares patent, oropharynx clear without exudates, moist mucous membranes. NECK: Trachea midline, full range of motion, supple. LUNGS: Breath sounds equal, clear to auscultation bilaterally, no wheezes, no crackles, no accessory muscle use. HEART: Regular rate and rhythm, S1, S2 without murmur, rub or gallop. ABDOMEN: Soft, nontender, nondistended, normoactive bowel sounds, no guarding, no rebound, no hepatosplenomegaly, no masses. EXTREMITIES: 2+ pulses, warm, well-perfused, no edema. NEUROLOGICAL: Cranial nerves II through XII grossly intact. Normal speech, gait not observed. PSYCH: Normal mood, normal affect. SKIN: Warm, dry, normal turgor, no rashes or lesions noted. LABS Laboratory Results - last 24 hr 06/28/18 06/29/18 06/29/18 07:40 06:15 06:15 WBC 10.8 H RBC 4.62 Hgb 13.8 Hct 41.8 MCV 90.5 MCH 29.8 MCHC 33.0 RDW 13.6 Plt Count 236 MPV 8.1 ESR 28 H Sodium 138 Potassium 4.4 Chloride 103 Carbon Dioxide 29 Anion Gap 7 L BUN 19 H Creatinine 1.0 Creat Clearance w eGFR > 60 Random Glucose 84 Calcium 8.7 Phosphorus 4.4 Magnesium 2.3 HOSPITAL COURSE: Date of Admission:06/28/18 Date of Discharge: 06/29/18 Discharge Summary Reason For Visit: ACUTE GOUT INTRACTABLE PAIN Current Active Problems Gout attack (Acute) Intractable pain (Acute) Condition: Improved - Instructions Diet, Activity, Other Instructions: Yo presented to [facility] on 06/28/19 for pain in your left foot and ankle. You underwent an X-RAY of your left foot which did not reveal any fractures or abnormalities. You also underwent an ultrasound of your left lower extremity which did not reveal any deep venous thrombosis (clots) in your leg. You were given medication for your pain and swelling while you were in the hospital. You were also treated with steroids. You were educated on maintaining a healthy diet and to avoid certain foods that are known to precipitate a gout attack such as red meat and soda. We have referred you to our medical clinic since you do not have a primary care physician. Please follow up with us in 1 week. Please also follow up with Dr Sanz, the software design manager, who is a specialist in gout attacks. Please take the following medications as written: Indomethacin 50mg 4 times per day for 2 days. Prednisone 40 mg on 06/30 ( 4 tabs) (start this tomorrow as you already received todays dose in the hospital) 20mg on 07/01-07/03 (2 tabs) 10mg on 07/04-07/06 (1 tab) 5mg on 07/07-07/09 (1/2 tab) These medications have been sent to your pharmacy. Please return to the Emergency Department if you experience shortness of breath , chest pain, increasing pain in your foot, or new onset fever. Referrals: Darrell Groves MD [Staff Physician] - Efrem Sanz MD [Staff Physician] - Disposition: HOME - Home Medications Comprehensive Discharge Medication List: Ambulatory Orders Indomethacin 50 mg PO QID 2 Days #8 capsule 06/29/18 Prednisone See Taper PO DAILY #20 tablet 06/29/18 - Discharge Referral Referred to [facility] No
--- NOTE | 2018-06-29 12:59 | PN ---
Teaching Attending Note Name of Resident: Paul Edwards ATTENDING PHYSICIAN STATEMENT I saw and evaluated the patient. I reviewed the resident's note and discussed the case with the resident. I agree with the resident's findings and plan as documented. SUBJECTIVE:pain improved. able to ambulate with cane on foot. denies Cp, SOB, fever, chills, N/V/C/D OBJECTIVE: Last Vital Signs Temp Pulse Resp BP Pulse Ox 98.2 F 57 L 20 133/77 99 06/29/18 10:00 06/29/18 10:00 06/29/18 10:00 06/29/18 10:00 06/29/18 05:25 General NAD Extremities L foot with 1st metatarsal MCP joint is slightly swollen, no longer erythematous. limited ROM of the digits. DP 2+. ASSESSMENT AND PLAN: 18yo M with no PMH presented to the Er with pain and swelling of MCP joint of L foot 1. L 1st digit gout flare- elevated uric acid. improved on steroids. cont taper per rheum, indomethacin x3 days. advised dietary changes to prevent future attacks. encouraged to f/u with PMD and rheum to see if would benefit from urate lowering therapy. 2. DVT ppx- EAM 3. d/c home
--- NOTE | 2018-06-29 21:32 | DS ---
Physical Exam: SUBJECTIVE: Patient seen and examined at bedside. No acute events overnight. Denies any complaints. OBJECTIVE: Vital Signs Period Temp Pulse Resp BP Sys/Arauz Pulse Ox Last 24 Hr 97.9 F-98.2 F 54-59 20-20 117-136/65-79 99-99 PHYSICAL EXAM GENERAL: AAOx3 NAD HEAD: NC/AT EYES: PERRLA EOMI ENT: MMM NECK: Supple LUNGS: CTA B/L No wheezing rhonchi or rales HEART: RRR No MRG S1S2 ABDOMEN: Soft NDNT No HSM EXTREMITIES: Left foot Full ROM, erythema resolving, tenderness resolving, warmth resolving NEUROLOGICAL:CN 2-12 intact PSYCH: Normal mood, normal affect. SKIN: Warm, dry, normal turgor, no rashes or lesions noted. LABS Laboratory Results - last 24 hr 06/29/18 06/29/18 06:15 06:15 WBC 10.8 H RBC 4.62 Hgb 13.8 Hct 41.8 MCV 90.5 MCH 29.8 MCHC 33.0 RDW 13.6 Plt Count 236 MPV 8.1 Sodium 138 Potassium 4.4 Chloride 103 Carbon Dioxide 29 Anion Gap 7 L BUN 19 H Creatinine 1.0 Creat Clearance w eGFR > 60 Random Glucose 84 Calcium 8.7 Phosphorus 4.4 Magnesium 2.3 HOSPITAL COURSE: Date of Admission:06/28/18 Pt was admitted on 06/18/2018 for an acute Gout Attack. Pt's Uric acid level was elevated and pt was given steroids, indomethacin, and colchicine. Pt's pain and symptoms subsequently resolved. XRAY was done of left foot which was negative. RF was negative. Duplex Negative for Deep Venous Thrombosis . Rheumatology evaluated pt and started patient on steroid taper and advised for him to follow up as outpatient. Patient is a 18 y/o male with asthma who presents for left lower foot pain. #Left foot pain 2/2 GOUT - Dr Sanz on board. - XRay on 06/23: negative for fracture, xray 06/28/18--> no acute foot pathology. - Duplex Negative for Deep Venous Thrombosis - Uric acid elevated 8.7 - RF Negative, CRP 6.6, AGNIESZKA pending - Ibuprofen discontinued per Rheumatology - Prednisone 40 mg/d for 3 days, then 20 mg/d for 3 days, then 10 mg/d for 3 days, then 5 mg/d for 3 days - Received Colchicine .3 mg - Indomethacin 50 mg QID for 3 days. -Establish Primary Care relationship for further counseling on diet and exercise #Asthma - 1 amp NEB Q8H PRN #FEN No Fluids Monitor Electrolytes Regular Diet DVT ppx: AEM Dispo: OBS Date of Discharge: 06/29/18 Minutes to complete discharge: 35 Discharge Summary Reason For Visit: ACUTE GOUT INTRACTABLE PAIN Condition: Improved - Instructions Diet, Activity, Other Instructions: Yo presented to [facility] on 06/28/19 for pain in your left foot and ankle. You underwent an X-RAY of your left foot which did not reveal any fractures or abnormalities. You also underwent an ultrasound of your left lower extremity which did not reveal any deep venous thrombosis (clots) in your leg. You were given medication for your pain and swelling while you were in the hospital. You were also treated with steroids. You were educated on maintaining a healthy diet and to avoid certain foods that are known to precipitate a gout attack such as red meat and soda. We have referred you to our medical clinic since you do not have a primary care physician. Please follow up with us in 1 week. Please also follow up with Dr Sanz, the water supply technician, who is a specialist in gout attacks. Please take the following medications as written: Indomethacin 50mg 4 times per day for 2 days. Prednisone 40 mg on 06/30 ( 4 tabs) (start this tomorrow as you already received todays dose in the hospital) 20mg on 07/01-07/03 (2 tabs) 10mg on 07/04-07/06 (1 tab) 5mg on 07/07-07/09 (1/2 tab) These medications have been sent to your pharmacy. Please return to the Emergency Department if you experience shortness of breath , chest pain, increasing pain in your foot, or new onset fever. Referrals: Darrell Groves MD [Staff Physician] - Efrem Sanz MD [Staff Physician] - Disposition: HOME - Home Medications Comprehensive Discharge Medication List: Ambulatory Orders Indomethacin 50 mg PO QID 2 Days #8 capsule 06/29/18 Prednisone See Taper PO DAILY #20 tablet 06/29/18 This patient is new to me today: No Emergency Visit: Yes ED Registration Date: 06/28/18 Care time: The patient presented to the Emergency Department on the above date and was hospitalized for further evaluation of their emergent condition. Critical Care patient: No - Discharge Referral Referred to [facility].: No
== END 2018-06-29 12:43 | disposition home or self-care (01) ==
LOC: JER 00:47 → JERBED 07:18 → J5S 12:28
PROVIDERS: ADMIT Internal Medicine; ATTEND Internal Medicine
PROC: 3E03329 Introduction of Other Anti-infective into Peripheral Vein, Percutaneous Approach (ICD-10-PCS; principal; 2018-06-28)
PROC: 3E0333Z Introduction of Anti-inflammatory into Peripheral Vein, Percutaneous Approach (ICD-10-PCS; 2018-06-28)
PROC: 3E033NZ Introduction of Analgesics, Hypnotics, Sedatives into Peripheral Vein, Percutaneous Approach (ICD-10-PCS; 2018-06-28)
DX: M10.9 Gout, unspecified (principal); R52 Pain, unspecified; J45.909 Unspecified asthma, uncomplicated
CPT/HCPCS: 36415; 73630-TC-LT; 80048; 80053; 83735; 84100; 84550; 85025; 85027; 85610; 85651; 85730; 86038; 86140; 86431; 87040; 93971-TC; 96365; 96375; 99284-25; G0378; J0131

== ENCOUNTER 2018-11-14 21:08 | Emergency (ER) | payer OTHER ==
[2018-11-14 21:25] VITALS: BP 124/84; PULSE 71; TEMP 98.4; BMI 40.0
--- NOTE | 2018-11-14 21:28 | PDOC ---
Rapid Medical Evaluation Time Seen by Provider: 11/14/18 21:21 Medical Evaluation: Allergies Allergy/AdvReac Type Severity Reaction Status Date / Time pepper (genus Capsicum) Allergy Rash Verified 06/28/18 02:41 11/14/18 21:22 I have performed a brief in-person evaluation of this patient The patient present with a chief complaint of: gout flare. Reports history of gout complaining pain and swelling x 2 weeks ago. Started taking prednisone and ibuprofen since last night Pertinent physical exam findings: Nad even and unlabored breathing +swelling to left great toe I have ordered the following: lab The patient will proceed to the ED for further evaluation. Discharge Disposition - Diagnosis Toe pain, left - Referrals - Patient Instructions - Post Discharge Activity
[2018-11-14] MEDS ORDERED: INDOMETHACIN 50 MG CAPSULE PO ONE (22:37)
--- NOTE | 2018-11-14 23:06 | PDOC ---
History of Present Illness - General Chief Complaint: Pain, Acute Stated Complaint: PAIN ON FEET Time Seen by Provider: 11/14/18 21:21 History Source: Patient Exam Limitations: No Limitations - History of Present Illness Initial Comments: 18 yo M h/o gout not on allopurinol p/w gout pain x 4 days. He took ibuprofen 800mg q8h and some left over predisone pills from last discharge, unknown dose. Denies fever, chills, n/v, chest pain. Past History - Past Medical History Allergies/Adverse Reactions: Allergies Allergy/AdvReac Type Severity Reaction Status Date / Time pepper (genus Capsicum) Allergy Rash Verified 06/28/18 02:41 Home Medications: Ambulatory Orders Indomethacin 50 mg PO QID #12 capsule 11/14/18 Prednisone See Taper PO DAILY #20 tablet 11/14/18 Asthma: Yes COPD: No DVT: No Dementia: No - Surgical History Orthopedic Surgery: Yes (left femur screw 2013) - Immunization History Immunization Up to Date: Yes - Suicide/Smoking/Psychosocial Hx Smoking History: Never smoked Have you smoked in the past 12 months: No Hx Alcohol Use: No Drug/Substance Use Hx: No Substance Use Type: None Hx Substance Use Treatment: No Review of Systems - Review of Systems Able to Perform ROS?: Yes Is the patient limited Welsh proficient: No Constitutional: No: Chills, Fever Respiratory: No: Cough, Shortness of Breath Cardiac (ROS): No: Chest Pain ABD/GI: No: Constipated, Diarrhea, Nausea, Vomiting : No: Burning, Dysuria, Discharge Musculoskeletal: Yes: Gout, Joint Pain Neurological: No: Headache, Numbness, Tingling *Physical Exam - Vital Signs Last Vital Signs Temp Pulse Resp BP Pulse Ox 98.4 F 71 20 124/84 96 11/14/18 21:21 11/14/18 21:21 11/14/18 21:21 11/14/18 21:21 11/14/18 21:21 - Physical Exam General Appearance: No: Apparent Distress Respiratory/Chest: positive: Lungs Clear, Normal Breath Sounds Cardiovascular: positive: Regular Rhythm, Regular Rate, S1, S2. negative: Edema , JVD, Murmur Extremity: positive: Swelling (R big toe) Neurologic: positive: search engineer II-XII NML intact ED Treatment Course - ADDITIONAL ORDERS Additional order review: Laboratory Results 11/14/18 21:47 Uric Acid 9.4 H *DC/Admit/Observation/Transfer Diagnosis at time of Disposition: Toe pain, left Gout attack Qualifiers: Gout site: toe Gout etiology: unspecified cause Laterality: right Qualified Code(s): M10.9 - Gout, unspecified - Discharge Dispostion Disposition: HOME Condition at time of disposition: Stable Decision to Admit order: No - Prescriptions Prescriptions: Indomethacin 50 mg PO QID #12 capsule Prednisone See Taper PO DAILY #20 tablet - Referrals Referrals: Efrem Sanz MD [Staff Physician] - - Patient Instructions Printed Discharge Instructions: DI for Gout Additional Instructions: You were evaluated in the ED for gout attack. Please take indomethacin 50mg four times a day x 3 days and predisone with taper (instruction given). You need to follow up with a supervisor furnace process as outpatient. - Post Discharge Activity Forms/Work/School Notes: Back to School
--- NOTE | 2018-11-14 23:09 | PDOC ---
Attending Attestation - HPI HPI: 11/14/18 23:10 The patient is a 18 YOM with a PMH of gout who presents today with swelling and pain to the left big toe and complaining of "gout flare." Patient took ibuprofen and left over prednisone from his last admission. Patient was admitted for gout in June. Patient's uric acid is always elevated on his labs. Patient denies fever, chills, chest pain, nausea or vomiting. Allergies: NKDA Surgeries: None reported. Social Hx: No reported alcohol, drug or cigarette use. - Physicial Exam PE: 11/14/18 23:16 ADULT EXAM GENERAL: Awake, alert, and fully oriented, in no acute distress HEAD: No signs of trauma EYES: PERRLA, EOMI, sclera anicteric, conjunctiva clear ENT: Auricles normal inspection, hearing grossly normal, nares patent, oropharynx clear without exudates. Moist mucosa NECK: Normal ROM, supple, no lymphadenopathy, JVD, or masses LUNGS: Breath sounds equal, clear to auscultation bilaterally. No wheezes, and no crackles HEART: Regular rate and rhythm, normal S1 and S2, no murmurs, rubs or gallops ABDOMEN: Soft, nontender, normoactive bowel sounds. No guarding, no rebound. No masses EXTREMITIES: Normal range of motion. (+) Left big toe with edema and erythema. No streaking or signs of cellulitis. NEUROLOGICAL: Cranial nerves II through XII grossly intact. Normal speech, normal gait SKIN: Warm, Dry, normal turgor, no rashes or lesions noted. <Verónica Reveles - Last Filed: 11/14/18 23:11> - Resident Resident Name: Rasheed Burton - ED Attending Attestation I have performed the following: I have examined & evaluated the patient, The case was reviewed & discussed with the resident, I agree w/resident's findings & plan, Exceptions are as noted - Medical Decision Making 11/15/18 00:09 ekf is AFIB @ 73 pt has history of afib 2 sets of cardiac enzymes are negative <Ryann Segura - Last Filed: 11/15/18 00:09>
== END 2018-11-15 00:16 | disposition home or self-care (01) ==
LOC: JER 21:08
DX: M10.9 Gout, unspecified (principal); I48.91 Unspecified atrial fibrillation
CPT/HCPCS: 36415; 84550; 99281-25

== ENCOUNTER 2023-05-16 18:07 | Emergency (ER) | payer OTHER ==
[2023-05-16 18:12] VITALS: BP 118/77; PULSE 80; RESP 18; TEMP 98.1; BMI 46.0
[2023-05-16] MEDS ORDERED: KETOROLAC TROMETHAMINE 30 MG/1 ML VIAL IM ONE (18:39)
[2023-05-16] MEDS ORDERED: KETOROLAC TROMETHAMINE 30 MG/1 ML VIAL ONE (18:47)
[2023-05-16 19:13] LABS: BASO % 1.1 % (0-2.0); EOS % 2.9 % (0-4.5); HEMATOCRIT 42.1 % (35.4-49); HEMOGLOBIN 14.6 GM/dL (11.7-16.9); LYMPH % 26.6 % (8-40); MCH 30.5 pg (25.7-33.7); MCHC 34.6 g/dl (32.0-35.9); MEAN CELL VOLUME 87.9 fl (80-96); MEAN PLT VOLUME 7.7 fl (7.5-11.1); MONO % 12.3 % (3.8-10.2); NEUT % 57.1 % (42.8-82.8); PLATELET COUNT 277 10^3/uL (134-434); RBC 4.79 M/mm3 (4.00-5.60); RDW 14.1 % (11.9-15.9); WHITE BLOOD COUNT 7.7 K/mm3 (4.0-10.0)
[2023-05-16 19:35] LABS: POTASSIUM 4.8 mmol/L (3.5-5.1)
[2023-05-16 19:37] LABS: ALBUMIN 3.6 g/dl (3.4-5.0); BLOOD UREA NITROGEN 13.9 mg/dL (7-18)
[2023-05-16 19:40] LABS: CREATININE 1.2 mg/dL (0.55-1.3)
[2023-05-16 19:42] LABS: BILIRUBIN,TOTAL 0.5 mg/dL (0.2-1); TOT PROT 7.7 g/dl (6.4-8.2)
[2023-05-16 19:50] LABS: EPI CELLS 9 /uL (0-25.1); HYALINE CASTS 0 /uL (0-3.1); PH,URINE 5.5 (5.0-8.0); URINE APPEARANCE CLEAR; URINE BACTERIA 5 /uL (0-1359); URINE BILIRUBIN NEGATIVE (NEGATIVE); URINE COLOR YELLOW; URINE GLUCOSE (UA) NEGATIVE (NEGATIVE); URINE KETONE NEGATIVE (NEGATIVE); URINE LEUK ESTERASE TRACE (NEGATIVE); URINE NITRITE NEGATIVE (NEGATIVE); URINE PROTEIN NEGATIVE (NEGATIVE); URINE RBC 8 /uL (0-23.9); URINE UROBILINOGEN 0.2 mg/dL (0.2-1.0); URINE WBC 17 /uL (0-25.8)
== END 2023-05-17 00:09 | disposition home or self-care (01) ==
LOC: JER 18:07
PROC: 3E0233Z Introduction of Anti-inflammatory into Muscle, Percutaneous Approach (ICD-10-PCS; principal; 2023-05-16)
DX: R10.9 Unspecified abdominal pain (principal)
CPT/HCPCS: 36415; 74176-TC; 80053; 81003; 85025; 87086; 99284-25

== ENCOUNTER 2023-09-11 12:54 | Inpatient (IN) | payer OTHER ==
[2023-09-11] MEDS ORDERED: LIDOCAINE 5% TOPICAL PATCH TP ONE (13:54)
[2023-09-11] MEDS ORDERED: KETOROLAC TROMETHAMINE 30 MG/1 ML VIAL ONE (14:10)
[2023-09-11] MEDS ORDERED: METHOCARBAMOL 500 MG TABLET ONE (14:10)
[2023-09-11] MEDS ORDERED: LIDOCAINE 4% PATCH TP ONE (14:10)
[2023-09-11] MEDS: METHOCARBAMOL 500 MG TABLET PO ONE (14:18)
[2023-09-11] MEDS: KETOROLAC TROMETHAMINE 30 MG/1 ML VIAL IM ONE (14:20)
[2023-09-11] MEDS: METHOCARBAMOL 750 MG TAB PO ONE (14:38)
[2023-09-11] MEDS: LIDOCAINE 4% PATCH TP ONE (15:07)
[2023-09-11] MEDS ORDERED: diazePAM 5 MG TABLET ONE (20:10)
[2023-09-11] MEDS: diazePAM 5 MG TABLET PO ONE (20:25)
[2023-09-11] MEDS: morphine CARPU-JECT 2 MG/1 ML DISP.SYRIN IVPUSH ONE (20:25)
[2023-09-11 20:26] LABS: HEMATOCRIT 43.5 % (35.4-49); HEMOGLOBIN 14.9 GM/dL (11.7-16.9); LYMPH % 22.5 % (8-40); MCH 30.5 pg (25.7-33.7); MCHC 34.2 g/dl (32.0-35.9); MEAN CELL VOLUME 89.2 fl (80-96); MEAN PLT VOLUME 8.1 fl (7.5-11.1); MONO % 15.1 % (3.8-10.2); NEUT % 58.4 % (42.8-82.8); PLATELET COUNT 245 10^3/uL (134-434); RBC 4.88 M/mm3 (4.00-5.60); RDW 14.2 % (11.9-15.9); WHITE BLOOD COUNT 9.3 K/mm3 (4.0-10.0)
[2023-09-11 20:52] LABS: POTASSIUM 3.5 mmol/L (3.5-5.1)
[2023-09-11 20:54] LABS: CALCIUM 9.2 mg/dL (8.5-10.1)
[2023-09-11 20:55] LABS: ALBUMIN 3.6 g/dl (3.4-5.0); BLOOD UREA NITROGEN 7.6 mg/dL (7-18)
[2023-09-11 20:58] LABS: CREATININE 1.1 mg/dL (0.55-1.3)
[2023-09-11 21:00] LABS: BILIRUBIN,TOTAL 0.7 mg/dL (0.2-1); TOT PROT 7.6 g/dl (6.4-8.2)
[2023-09-11] MEDS ORDERED: LIDOCAINE PATCH REMOVAL MC SCH (22:00)
[2023-09-11] MEDS: LIDOCAINE PATCH REMOVAL MC SCH (22:02)
[2023-09-11] MEDS ORDERED: ALBUTEROL SO4 0.083% IH SOL 2.5 MG/3 ML VIAL.NEB. NEB PRN (22:36)
[2023-09-11] MEDS ORDERED: GABAPENTIN 100 MG CAPSULE ONE (22:45)
[2023-09-11] MEDS: GABAPENTIN 100 MG CAPSULE PO SCH (22:52)
[2023-09-12 02:41] VITALS: BMI 46.6
[2023-09-12] MEDS: KETOROLAC TROMETHAMINE 15 MG/ML VIAL IVPUSH PRN (09:22)
[2023-09-12] MEDS: ENOXAPARIN NA (PORCINE) 40 MG/0.4 ML DISP.SYRIN SQ SCH (09:23)
[2023-09-12 10:43] LABS: CHLORIDE 104 mmol/L (98-107); POTASSIUM 3.6 mmol/L (3.5-5.1); SODIUM 139 mmol/L (136-145)
[2023-09-12 10:50] LABS: ANION GAP 7 mmol/L (4-13); CO2 28 mmol/L (21-32)
[2023-09-12 10:51] LABS: BLOOD UREA NITROGEN 9.2 mg/dL (7-18); GLUCOSE,RANDOM 123 mg/dL (74-106)
[2023-09-12 10:52] LABS: HEMATOCRIT 40.2 % (35.4-49); HEMOGLOBIN 13.9 GM/dL (11.7-16.9); MCH 30.9 pg (25.7-33.7); MCHC 34.6 g/dl (32.0-35.9); MEAN CELL VOLUME 89.4 fl (80-96); MEAN PLT VOLUME 8.7 fl (7.5-11.1); PLATELET COUNT 232 10^3/uL (134-434); RDW 13.9 % (11.9-15.9); WHITE BLOOD COUNT 6.6 K/mm3 (4.0-10.0)
[2023-09-12 10:54] LABS: CREATININE 1.1 mg/dL (0.55-1.3)
[2023-09-12 10:56] LABS: CALCIUM 9.2 mg/dL (8.5-10.1)
[2023-09-12 11:16] LABS: URIC ACID 13.5 mg/dL (2.6-7.2)
[2023-09-12 12:32] LABS: EPI CELLS 12 /uL (0-25.1); HYALINE CASTS 2 /uL (0-3.1); PH,URINE 5.5 (5.0-8.0); URINE APPEARANCE CLEAR; URINE BACTERIA 16 /uL (0-1359); URINE BILIRUBIN NEGATIVE (NEGATIVE); URINE COLOR YELLOW; URINE GLUCOSE (UA) NEGATIVE (NEGATIVE); URINE KETONE TRACE (NEGATIVE); URINE LEUK ESTERASE TRACE (NEGATIVE); URINE NITRITE NEGATIVE (NEGATIVE); URINE PROTEIN NEGATIVE (NEGATIVE); URINE RBC 85 /uL (0-23.9); URINE UROBILINOGEN 0.2 mg/dL (0.2-1.0); URINE WBC 43 /uL (0-25.8)
[2023-09-12] MEDS: ALLOPURINOL 100 MG TABLET (FP) PO SCH (12:46)
[2023-09-12] MEDS: CYCLOBENZAPRINE HCL 10 MG TABLET (FP) PO SCH (13:13)
[2023-09-12] MEDS: ACETAMINOPHEN 325 MG TABLET (FP) PO SCH (13:13)
[2023-09-13 09:01] LABS: BASO % 0.7 % (0-2.0); EOS % 4.9 % (0-4.5); HEMATOCRIT 39.2 % (35.4-49); HEMOGLOBIN 13.4 GM/dL (11.7-16.9); LYMPH % 23.5 % (8-40); MCH 30.8 pg (25.7-33.7); MCHC 34.2 g/dl (32.0-35.9); MEAN PLT VOLUME 8.5 fl (7.5-11.1); MONO % 18.4 % (3.8-10.2); NEUT % 52.5 % (42.8-82.8); PLATELET COUNT 232 10^3/uL (134-434); RBC 4.35 M/mm3 (4.00-5.60); RDW 14.5 % (11.9-15.9); WHITE BLOOD COUNT 5.8 K/mm3 (4.0-10.0)
[2023-09-13 09:29] LABS: POTASSIUM 4.1 mmol/L (3.5-5.1)
[2023-09-13 09:34] LABS: ALBUMIN 3.1 g/dl (3.4-5.0); BLOOD UREA NITROGEN 11.4 mg/dL (7-18); CALCIUM 9.2 mg/dL (8.5-10.1)
[2023-09-13 09:37] LABS: CREATININE 1.1 mg/dL (0.55-1.3)
[2023-09-13 09:39] LABS: BILIRUBIN,TOTAL 0.4 mg/dL (0.2-1); TOT PROT 6.8 g/dl (6.4-8.2)
[2023-09-13 10:12] LABS: ERYTHROCYTE SEDIMENTATION RATE 34 mm/hr (0-10)
[2023-09-14 10:36] LABS: HEMATOCRIT 40.6 % (35.4-49); HEMOGLOBIN 13.4 GM/dL (11.7-16.9); MCH 30.1 pg (25.7-33.7); MEAN CELL VOLUME 91.1 fl (80-96); MEAN PLT VOLUME 9.4 fl (7.5-11.1); PLATELET COUNT 213 10^3/uL (134-434); RBC 4.46 M/mm3 (4.00-5.60); RDW 14.1 % (11.9-15.9); WHITE BLOOD COUNT 6.3 K/mm3 (4.0-10.0)
[2023-09-14 10:49] LABS: POTASSIUM 4.5 mmol/L (3.5-5.1)
[2023-09-14 10:59] LABS: CALCIUM 8.9 mg/dL (8.5-10.1)
[2023-09-14 11:00] LABS: ALBUMIN 2.9 g/dl (3.4-5.0)
[2023-09-14 11:05] LABS: BILIRUBIN,TOTAL 0.3 mg/dL (0.2-1); TOT PROT 6.6 g/dl (6.4-8.2)
[2023-09-14] MEDS: oxyCODONE HCL 5 MG TABLET PO PRN (14:36)
[2023-09-14] MEDS: LIDOCAINE 4% PATCH TP PRN (17:40)
[2023-09-14] MEDS: LIDOCAINE PATCH REMOVAL MC SCH (21:31)
[2023-09-14] MEDS: ACETAMINOPHEN 500 MG TABLET (FP) PO SCH (21:31)
[2023-09-14] MEDS: GABAPENTIN 300 MG CAPSULE PO SCH (21:31)
[2023-09-15] MEDS: ALLOPURINOL 300 MG TABLET (FP) PO SCH (09:57)
[2023-09-15] MEDS: KETOROLAC TROMETHAMINE 15 MG/ML VIAL IVPUSH ONE (10:38)
[2023-09-15 10:41] LABS: HEMATOCRIT 40.8 % (35.4-49); HEMOGLOBIN 13.7 GM/dL (11.7-16.9); MCH 30.4 pg (25.7-33.7); MCHC 33.5 g/dl (32.0-35.9); MEAN CELL VOLUME 90.7 fl (80-96); MEAN PLT VOLUME 8.1 fl (7.5-11.1); PLATELET COUNT 240 10^3/uL (134-434); RBC 4.49 M/mm3 (4.00-5.60); RDW 14.3 % (11.9-15.9); WHITE BLOOD COUNT 6.5 K/mm3 (4.0-10.0)
[2023-09-15 10:52] LABS: POTASSIUM 4.2 mmol/L (3.5-5.1)
[2023-09-15 10:54] LABS: ALBUMIN 3.1 g/dl (3.4-5.0); BLOOD UREA NITROGEN 12.6 mg/dL (7-18); CALCIUM 9.3 mg/dL (8.5-10.1)
[2023-09-15 10:59] LABS: BILIRUBIN,TOTAL 0.3 mg/dL (0.2-1)
[2023-09-15] MEDS: KETOROLAC TROMETHAMINE 15 MG/ML VIAL IVPUSH SCH (17:10)
[2023-09-15] MEDS: POLYETHYLENE GLYCOL (HEALTHYLAX) 3350 17 GM PACKET PO SCH (22:36)
[2023-09-16 09:29] LABS: HEMATOCRIT 38.2 % (35.4-49); HEMOGLOBIN 12.7 GM/dL (11.7-16.9); MCH 30.2 pg (25.7-33.7); MCHC 33.3 g/dl (32.0-35.9); MEAN CELL VOLUME 90.6 fl (80-96); MEAN PLT VOLUME 8.3 fl (7.5-11.1); PLATELET COUNT 233 10^3/uL (134-434); RBC 4.22 M/mm3 (4.00-5.60); RDW 14.1 % (11.9-15.9); WHITE BLOOD COUNT 6.3 K/mm3 (4.0-10.0)
[2023-09-16 09:41] LABS: POTASSIUM 4.4 mmol/L (3.5-5.1)
[2023-09-16 10:07] LABS: CALCIUM 8.8 mg/dL (8.5-10.1)
[2023-09-16 10:08] LABS: BLOOD UREA NITROGEN 17.2 mg/dL (7-18)
[2023-09-16 10:12] LABS: CREATININE 0.9 mg/dL (0.55-1.3)
[2023-09-16 10:13] LABS: BILIRUBIN,TOTAL 0.3 mg/dL (0.2-1)
[2023-09-16 10:15] LABS: TOT PROT 6.4 g/dl (6.4-8.2)
[2023-09-16] MEDS: CYCLOBENZAPRINE HCL 10 MG TABLET (FP) PO SCH (13:26)
[2023-09-16 14:53] VITALS: RESP 18
[2023-09-17] MEDS: PANTOPRAZOLE 40 MG TABLET PO SCH (10:06)
[2023-09-17 10:54] LABS: HEMATOCRIT 39.7 % (35.4-49); HEMOGLOBIN 13.1 GM/dL (11.7-16.9); MCH 30.2 pg (25.7-33.7); MEAN CELL VOLUME 91.6 fl (80-96); MEAN PLT VOLUME 8.3 fl (7.5-11.1); PLATELET COUNT 241 10^3/uL (134-434); RBC 4.34 M/mm3 (4.00-5.60); RDW 13.9 % (11.9-15.9); WHITE BLOOD COUNT 6.5 K/mm3 (4.0-10.0)
[2023-09-17 11:10] LABS: POTASSIUM 4.5 mmol/L (3.5-5.1)
[2023-09-17 11:16] LABS: CALCIUM 9.2 mg/dL (8.5-10.1)
[2023-09-17 11:17] LABS: BLOOD UREA NITROGEN 17.9 mg/dL (7-18)
[2023-09-17 11:21] LABS: BILIRUBIN,TOTAL 0.2 mg/dL (0.2-1)
[2023-09-18 09:19] LABS: HEMOGLOBIN 13.2 GM/dL (11.7-16.9); MCH 30.7 pg (25.7-33.7); MEAN CELL VOLUME 90.3 fl (80-96); PLATELET COUNT 237 10^3/uL (134-434); RBC 4.32 M/mm3 (4.00-5.60); RDW 14.1 % (11.9-15.9); WHITE BLOOD COUNT 6.9 K/mm3 (4.0-10.0)
[2023-09-18 10:02] LABS: POTASSIUM 4.4 mmol/L (3.5-5.1)
[2023-09-18 10:03] LABS: CALCIUM 8.8 mg/dL (8.5-10.1)
[2023-09-18 10:07] LABS: CREATININE 0.9 mg/dL (0.55-1.3)
[2023-09-19] MEDS ORDERED: KETOROLAC TROMETHAMINE 15 MG/ML VIAL IVPUSH PRN (14:05)
[2023-09-19] MEDS ORDERED: KETOROLAC TROMETHAMINE 30 MG/1 ML VIAL IVPUSH PRN (14:06)
[2023-09-19] MEDS: GABAPENTIN 400 MG CAPSULE PO SCH (14:16)
[2023-09-21 08:50] VITALS: BP 126/62; PULSE 69; TEMP 97.4
== END 2023-09-21 14:12 | DRG 347 ==
LOC: JER 12:54 → JERBED 20:19 → J6S 09-12 01:29 → OBSVTOIN 09-14 13:21
PROVIDERS: ADMIT Internal Medicine; ATTEND Internal Medicine
DX: M54.16 Radiculopathy, lumbar region (principal); J45.909 Unspecified asthma, uncomplicated; E66.01 Morbid (severe) obesity due to excess calories; Z68.42 Body mass index [BMI] 45.0-49.9, adult; M54.32 Sciatica, left side; M62.838 Other muscle spasm; R26.2 Difficulty in walking, not elsewhere classified; E79.0 Hyperuricemia without signs of inflammatory arthritis and tophaceous disease; Z86.711 Personal history of pulmonary embolism
CPT/HCPCS: 0241U-QW; 36415; 74176-TC; 80048; 80053; 81003; 83735; 84443; 84550; 85025; 85027; 85651; 93005; 93010; 97116-GP; 97162-GP; 99285-25; G0378

== ENCOUNTER 2024-05-07 03:13 | Observation (INO) | payer OTHER ==
[2024-05-07 03:19] VITALS: RESP 18; BMI 43.7
[2024-05-07] MEDS ORDERED: ACETAMINOPHEN INJECTION 100 ML ONE (04:54)
[2024-05-07 05:11] LABS: BASO % 0.7 % (0-2.0); EOS % 1.2 % (0-4.5); HEMATOCRIT 44.6 % (35.4-49); HEMOGLOBIN 14.9 GM/dL (11.7-16.9); LYMPH % 15.4 % (8-40); MCH 30.4 pg (25.7-33.7); MCHC 33.3 g/dl (32.0-35.9); MEAN CELL VOLUME 91.2 fl (80-96); MEAN PLT VOLUME 8.9 fl (7.5-11.1); NEUT % 72.7 % (42.8-82.8); PLATELET COUNT 238 10^3/uL (134-434); RBC 4.89 M/mm3 (4.00-5.60); RDW 14.3 % (11.9-15.9); WHITE BLOOD COUNT 10.9 K/mm3 (4.0-10.0)
[2024-05-07] MEDS: ACETAMINOPHEN 1000 MG/100 ML BAG IVPB ONE (05:13)
[2024-05-07] MEDS: SODIUM CHLORIDE 0.9% 500 ML INFUS.BAG IV ONE (05:35)
[2024-05-07 06:19] LABS: POTASSIUM 4.8 mmol/L (3.5-5.1)
[2024-05-07 06:20] LABS: ALBUMIN 3.7 g/dl (3.4-5.0); BLOOD UREA NITROGEN 12.3 mg/dL (7-18); CALCIUM 8.6 mg/dL (8.5-10.1)
[2024-05-07 06:24] LABS: CREATININE 1.2 mg/dL (0.55-1.3)
[2024-05-07 06:26] LABS: BILIRUBIN,TOTAL 0.4 mg/dL (0.2-1); TOT PROT 7.8 g/dl (6.4-8.2)
[2024-05-07] MEDS ORDERED: KETOROLAC TROMETHAMINE 15 MG/ML VIAL ONE (08:12)
[2024-05-07] MEDS: KETOROLAC TROMETHAMINE 15 MG/ML VIAL IVPUSH ONE (08:30)
[2024-05-07] MEDS ORDERED: ACETAMINOPHEN 1000 MG/100 ML BAG IVPB PRN ×2 (08:43→10:32)
[2024-05-07] MEDS ORDERED: methylPREDNISolone NA SUCC 125 MG/2 ML VIAL ONE (08:51)
[2024-05-07] MEDS: methylPREDNISolone NA SUCC 40 MG/1 ML VIAL IVPUSH SCH (08:58)
[2024-05-07] MEDS ORDERED: KETOROLAC TROMETHAMINE 30 MG/1 ML VIAL IVPUSH PRN (10:31)
[2024-05-07] MEDS: ALLOPURINOL 300 MG TABLET (FP) PO SCH (10:40)
[2024-05-07] MEDS ORDERED: CYCLOBENZAPRINE HCL 10 MG TABLET (FP) ONE (14:23)
[2024-05-07] MEDS ORDERED: ACETAMINOPHEN 500 MG TABLET (FP) ONE (14:24)
[2024-05-07] MEDS: CYCLOBENZAPRINE HCL 10 MG TABLET (FP) PO SCH (14:29)
[2024-05-07] MEDS: ACETAMINOPHEN 500 MG TABLET (FP) PO SCH (14:29)
[2024-05-07 15:45] VITALS: TEMP 98.3
[2024-05-07] MEDS ORDERED: methylPREDNISolone NA SUCC 40 MG/1 ML VIAL ONE (20:18)
[2024-05-07 22:26] VITALS: BP 119/78; PULSE 72
== END 2024-05-07 20:35 | disposition home or self-care (01) ==
LOC: JER 03:13 → JERBED 08:31
PROVIDERS: ADMIT Internal Medicine; ATTEND Internal Medicine
PROC: 3E033GC Introduction of Other Therapeutic Substance into Peripheral Vein, Percutaneous Approach (ICD-10-PCS; principal; 2024-05-07)
PROC: 3E0333Z Introduction of Anti-inflammatory into Peripheral Vein, Percutaneous Approach (ICD-10-PCS; 2024-05-07)
PROC: 3E033NZ Introduction of Analgesics, Hypnotics, Sedatives into Peripheral Vein, Percutaneous Approach (ICD-10-PCS; 2024-05-07)
PROC: 3E0337Z Introduction of Electrolytic and Water Balance Substance into Peripheral Vein, Percutaneous Approach (ICD-10-PCS; 2024-05-07)
DX: M25.572 Pain in left ankle and joints of left foot (principal); R50.9 Fever, unspecified; M10.9 Gout, unspecified; J45.909 Unspecified asthma, uncomplicated; R26.2 Difficulty in walking, not elsewhere classified; E66.9 Obesity, unspecified
CPT/HCPCS: 0241U-QW; 36415; 73610-TC-LT-FY; 73630-TC-LT; 80053; 84550; 85025; 85651; 93005; 93010; 96374; 96375; 99285-25; G0378; J0131

== ENCOUNTER 2024-10-13 13:42 | Emergency (ER) | payer OTHER ==
[2024-10-13 13:51] VITALS: BP 126/82; PULSE 100; RESP 18; TEMP 98.2; BMI 35.5
[2024-10-13] MEDS ORDERED: DEXAMETHASONE SOD PHOSPHATE 10 MG/1 ML VIAL ONE (15:40)
[2024-10-13] MEDS ORDERED: COLCHICINE 0.6 MG TAB ONE (15:40)
[2024-10-13] MEDS ORDERED: LIDOCAINE 5% TOPICAL PATCH ONE (15:40)
[2024-10-13] MEDS ORDERED: ACETAMINOPHEN WITH CODEINE 300MG/30MG TABLET ONE (15:42)
[2024-10-13] MEDS: ACETAMINOPHEN WITH CODEINE 300MG/30MG TABLET PO ONE (15:49)
[2024-10-13] MEDS: DEXAMETHASONE SOD PHOSPHATE 10 MG/1 ML VIAL IM ONE (15:50)
[2024-10-13] MEDS: LIDOCAINE 5% TOPICAL PATCH TP ONE (15:50)
[2024-10-13] MEDS: COLCHICINE 0.6 MG CAP PO ONE (15:51)
[2024-10-13] MEDS ORDERED: LIDOCAINE 4% PATCH TP ONE (15:53)
[2024-10-13] MEDS ORDERED: LIDOCAINE PATCH REMOVAL MC SCH (22:00)
== END 2024-10-13 17:35 | disposition home or self-care (01) ==
LOC: JERFT 13:42
PROC: 3E023GC Introduction of Other Therapeutic Substance into Muscle, Percutaneous Approach (ICD-10-PCS; principal; 2024-10-13)
DX: M10.9 Gout, unspecified (principal); M79.89 Other specified soft tissue disorders; M79.675 Pain in left toe(s)
CPT/HCPCS: 99284-25; J1100